=== PATIENT | male | born 1995 | race Caucasian/White ===

== ENCOUNTER 2022-09-21 14:44 | Emergency (ER) | payer BC ==
[~2022-09-21] VITALS: Ht 185.4 cm; Wt 101.6 kg
[2022-09-21] MEDS ORDERED: AMOX-CLAV 875-1 EACH PO (15:03)
== END 2022-09-21 15:25 | disposition home or self-care (01) ==
LOC: ED 14:44
DX: S61.412A Laceration without foreign body of left hand, initial encounter (principal); W54.0XXA Bitten by dog, initial encounter; Y93.89 Activity, other specified; Y92.89 Other specified places as the place of occurrence of the external cause; Y99.8 Other external cause status

== ENCOUNTER 2022-09-24 16:59 | Emergency (ER) | payer BC ==
[~2022-09-24] VITALS: Ht 185.4 cm; Wt 97.5 kg
[~2022-09-24 16:59] MED LIST: AMOX-CLAV 875-1 EACH PO
== END 2022-09-24 18:12 | disposition home or self-care (01) ==
LOC: ED 16:59
DX: T14.8XXD Other injury of unspecified body region, subsequent encounter (principal); W54.0XXD Bitten by dog, subsequent encounter

== ENCOUNTER 2022-09-28 16:59 | Emergency (ER) | payer BC ==
[~2022-09-28] VITALS: Ht 187.9 cm; Wt 97.5 kg
== END 2022-09-28 18:21 | disposition home or self-care (01) ==
LOC: ED 16:59
DX: T14.8XXD Other injury of unspecified body region, subsequent encounter (principal); W54.0XXD Bitten by dog, subsequent encounter

== ENCOUNTER 2022-10-05 17:41 | Emergency (ER) | payer BC ==
[~2022-10-05] VITALS: Wt 97.5 kg
== END 2022-10-05 17:50 | disposition home or self-care (01) ==
LOC: ED 17:41
DX: S61.452D Open bite of left hand, subsequent encounter (principal); Z11.3 Encounter for screening for infections with a predominantly sexual mode of transmission; Z20.3 Contact with and (suspected) exposure to rabies; Z79.2 Long term (current) use of antibiotics; W54.0XXD Bitten by dog, subsequent encounter